=== PATIENT | female | born 1965 | race Caucasian/White ===

== ENCOUNTER 2016-09-24 18:30 | Emergency (ER) | payer SELFPAY ==
[2016-09-24] MEDS ORDERED: TRAMADOL 50 MG TAB ONE (20:36)
== END 2016-09-24 21:53 | disposition home or self-care (01) ==
LOC: FASTR 18:30
DX: M10.072 Idiopathic gout, left ankle and foot (principal); S50.861A Insect bite (nonvenomous) of right forearm, initial encounter; S90.861A Insect bite (nonvenomous), right foot, initial encounter; S90.862A Insect bite (nonvenomous), left foot, initial encounter; W57.XXXA Bitten or stung by nonvenomous insect and other nonvenomous arthropods, initial encounter; F17.210 Nicotine dependence, cigarettes, uncomplicated
CPT/HCPCS: 36415; 80053; 84550; 85025